=== PATIENT | female | born 1990 | race Caucasian/White ===

== ENCOUNTER 2018-08-13 08:50 | Emergency (ER) | payer SELFPAY ==
[~2018-08-13] VITALS: Ht 160 cm; Wt 69.9 kg
[2018-08-13 08:51] VITALS: BP 132/58
--- NOTE | 2018-08-13 09:30 | PHYS DOC ---
Past Medical History Past Medical History: Other Additional Past Medical Histor: CRISELDAH Past Surgical History: No Surgical History Alcohol Use: None Drug Use: Other Social History Narrative: FORMER - [facility] , IN REHAB 08/28 Adult General Chief Complaint Chief Complaint: ABDOMINAL PAIN HPI HPI Patient is a 27 year old female with history of drug use currently in drug rehabilitation facility [facility], who presents today complaining of 5 out of 10 bilateral pelvic pain and vaginal discharge for 1 week, patient describes the pain as contractions that come and go. Patient is concerned about STDs and would like to be tested and treated. Patient states she's been taking ibuprofen with relief to her symptoms. She states she is currently being treated for UTI, unknown antibiotic. Review of Systems Review of Systems Constitutional: Denies fever or chills [] Eyes: Denies change in visual acuity, redness, or eye pain [] HENT: Denies nasal congestion or sore throat [] Respiratory: Denies cough or shortness of breath [] Cardiovascular: No additional information not addressed in HPI [] GI: Reports pelvic pain and vaginal discharge, denies nausea, vomiting, bloody stools or diarrhea [] : Denies dysuria or hematuria [] Musculoskeletal: Denies back pain or joint pain [] Integument: Denies rash or skin lesions [] Neurologic: Denies headache, focal weakness or sensory changes [] All other systems were reviewed and found to be within normal limits, except as documented in this note. Current Medications Current Medications Current Medications Medications (Trade) Dose Ordered Sig/Moses Start Time Stop Time Status Last Admin Dose Admin Acetaminophen (Tylenol) 1,000 mg 1X ONCE 08/13/18 10:00 08/13/18 10:01 DC 08/13/18 10:08 1,000 MG Azithromycin (Zithromax) 1,000 mg 1X ONCE 08/13/18 10:00 08/13/18 10:01 DC 08/13/18 10:08 1,000 MG Ceftriaxone Sodium (Rocephin Im) 250 mg 1X ONCE 08/13/18 10:00 08/13/18 10:01 DC 08/13/18 10:08 250 MG Metronidazole (Flagyl) 2,000 mg 1X ONCE 08/13/18 10:00 08/13/18 10:01 DC 08/13/18 10:08 2,000 MG Allergies Allergies Allergies Coded Allergies Type Severity Reaction Last Updated Verified Penicillins Allergy Intermediate Rash 08/13/18 Yes Physical Exam Physical Exam Constitutional: Well developed, well nourished, no acute distress, non-toxic appearance. [] HENT: Normocephalic, atraumatic, bilateral external ears normal, oropharynx moist, no oral exudates, nose normal. [] Eyes: PERRLA, EOMI, conjunctiva normal, no discharge. [] Neck: Normal range of motion, no tenderness, supple, no stridor. [] Cardiovascular:Heart rate regular rhythm, no murmur [] Lungs & Thorax: Bilateral breath sounds clear to auscultation [] Abdomen: Bowel sounds normal, soft, no tenderness, no masses, no pulsatile masses. [] Pelvic exam External pelvic appears normal, cervix is closed, moderate amount of greenish discharge in the vaginal vault, no CMT present, no adnexal tenderness Skin: Warm, dry, no erythema, no rash. [] Back: No tenderness, no CVA tenderness. [] Extremities: No tenderness, no cyanosis, no clubbing, ROM intact, no edema. [] Neurologic: Alert and oriented X 3, normal motor function, normal sensory function, no focal deficits noted. [] Psychologic: Affect normal, judgement normal, mood normal. [] Current Patient Data Vital Signs Vital Signs Date Time Temp Pulse Resp B/P (MAP) Pulse Ox O2 Delivery O2 Flow Rate FiO2 08/13/18 08:51 98.2 92 16 132/58 (82) 98 Room Air 98.2 Lab Values Laboratory Tests Test 08/13/18 08:57 08/13/18 09:02 Urine Collection Type Void Urine Color Yellow Urine Clarity Turbid Urine pH 5.0 Urine Specific [place] >=1.030 Urine Protein Negative mg/dL (NEG-TRACE) Urine Glucose (UA) Negative mg/dL (NEG) Urine Ketones (Stick) Negative mg/dL (NEG) Urine Blood Large (NEG) Urine Nitrite Negative (NEG) Urine Bilirubin Negative (NEG) Urine Urobilinogen Dipstick 0.2 mg/dL (0.2 mg/dL) Urine Leukocyte Esterase Moderate (NEG) Urine RBC 11-20 /HPF (0-2) Urine WBC 11-20 /HPF (0-4) Urine Squamous Epithelial Cells Many /LPF Urine Bacteria Mod /HPF (0-FEW) Urine Mucus Marked /LPF POC Urine HCG, Qualitative Hcg negative (Negative) Microbiology 08/13/18 Wet Prep - Final, Complete EKG EKG [] Radiology/Procedures Radiology/Procedures [] Course & Med Decision Making Course & Med Decision Making Pertinent Labs and Imaging studies reviewed. (See chart for details) This is a 27-year-old female patient currently in drug rehabilitation presenting with pelvic pain, vaginal discharge and concern for STDs. Patient was given prophylactic treatment in the ED. Negative urine hCG, urine still shows infection but appears contaminated. Patient states she is on Bactrim, was d/c on MicroBid. She also has bacterial vaginosis. Will be discharged and Flagyl, preliminary read ultrasound is normal. F/u with OBGYN provided in one week. Dragon Disclaimer Dragon Disclaimer This electronic medical record was generated, in whole or in part, using a voice recognition dictation system. Departure Departure Impression: Primary Impression: Concern about STD in female without diagnosis Additional Impressions: UTI (urinary tract infection) Bacterial vaginosis Disposition: HOME, SELF-CARE Condition: STABLE Referrals: NO PCP (PCP) YOKASTA MARMOLEJO Jr, MD Follow up in 1 week Patient Instructions: Bacterial Vaginosis, [id number], Urinary Tract Infection Additional Instructions: You were treated prophylaxis for STDs in the emergency room. Please contact all your sex partners, let them know you were treated for STDs and ask them to seek treatment too. Use protection at all times. Do not have sex for 7 days. Complete the rest of the antibiotics. Follow-up with the [facility] provided. Scripts Nitrofurantoin Monohyd/M-Cryst (MACROBID 100 MG CAPSULE) 100 Mg Capsule 1 CAP PO BID, #14 CAP Prov: TRAVIS JONES [employer] 08/13/18 Metronidazole (FLAGYL) 500 Mg Tablet 1 TAB PO BID, #10 TAB Prov: TRAVIS JONES [employer] 08/13/18 Problem Qualifiers Additional Impressions: UTI (urinary tract infection) Urinary tract infection type: site unspecified Hematuria presence: without hematuria Qualified Codes: N39.0 - Urinary tract infection, site not specified TRAVIS JONES APRN Aug 13, 2018 09:30
[2018-08-13 09:46] LABS: BILIRUBIN,URINE NEGATIVE (NEG); CLARITY,URINE TURBID; COLOR,URINE YELLOW; NITRITE,URINE NEGATIVE (NEG); PROTEIN,URINE NEGATIVE (NEG-TRACE); UROBILINOGEN,URINE 0.2 mg/dL (0.2 mg/dL)
[2018-08-13 09:47] LABS: BACTERIA,URINE MOD /HPF (0-FEW); SQUAMOUS EPITHELIAL CELL,UR MANY /LPF
[2018-08-13] MEDS ORDERED: metroNIDAZOLE 500 MG TABLET PO ONE (10:00)
[2018-08-13] MEDS ORDERED: cefTRIAXone IM 250 MG VIAL IM ONE (10:00)
[2018-08-13] MEDS ORDERED: AZITHROMYCIN 250 MG TABLET. PO ONE (10:00)
[2018-08-13] MEDS ORDERED: ACETAMINOPHEN 500 MG TABLET PO ONE (10:00)
--- NOTE | 2018-08-13 10:19 | RAD ---
Examination: Ultrasound pelvis HISTORY: History of pelvic pain COMPARISON: None available. Findings: The uterus measures 9.2 x 6.7 x 5.0 cm. The endometrium measures 1 mm in thickness. The right ovary measures 5.1 x 2.3 x 1.7 cm. The left ovary measures 4.2 x 1.8 x 1.9 cm. Blood flow identified in the right and left ovaries. 1.9 cm follicle identified in the right ovary. IMPRESSION: Cystic structure identified in the right ovary with the largest measuring 1.9 cm likely a follicle. Otherwise unremarkable exam. Electronically signed by: Graeme Maciel MD (08/13/2018 10:15 AM) [facility]
[2018-08-13] MEDS ORDERED: NITR100C62 PO (10:33)
[2018-08-13] MEDS ORDERED: METR500T PO (10:33)
[2018-08-15 15:27] LABS: GC PROBE Positive (Negative)
== END 2018-08-13 10:41 | disposition home or self-care (01) ==
LOC: ER 08:50
DX: N39.0 Urinary tract infection, site not specified (principal); N76.0 Acute vaginitis; B96.89 Other specified bacterial agents as the cause of diseases classified elsewhere; Z20.2 Contact with and (suspected) exposure to infections with a predominantly sexual mode of transmission; Z88.0 Allergy status to penicillin
CPT/HCPCS: 76830; 76856; 81001; 81025; 87491; 87591; 96372; 99285; J0696; Q0111; Q0144